=== PATIENT | male | born 1980 | race Caucasian/White ===

== ENCOUNTER 2016-10-22 18:40 | Emergency (ER) | payer OTHER ==
[2016-10-22 18:45] VITALS: BP 143/98
[2016-10-22 19:32] LABS: Hematocrit 45 % (42-52); Hemoglobin 15.6 g/dl (14.0-18.0); Mean Corpuscular HGB Conc 34 g/dl (31-36); Mean Corpuscular Hemoglobin 31 pg (27-31); Mean Corpuscular Volume 91 fL (80-94); Mean Platelet Volume 9 um3 (7.4-10.4); Red Blood Count 5.01 10^6/ul (4.0-5.4); Red Cell Distribution Width 14 % (10.5-15); White Blood Count 9.3 10^3/ul (3.5-10.8)
[2016-10-22 19:46] LABS: Urine Bilirubin Negative (Negative); Urine Glucose Negative (Negative); Urine Nitrite Negative (Negative)
[2016-10-22 19:48] LABS: ALT 26 U/L (7-52); AST 23 U/L (13-39); Albumin 4.4 g/dL (3.2-5.2); Alkaline Phosphatase 52 U/L (34-104); Anion Gap 7 mmol/L (2-11); BUN/Creatinine Ratio 18.6 (8-20); Blood Urea Nitrogen 16 mg/dL (6-24); CO2 Carbon Dioxide 27 mmol/L (22-32); Calcium 9.3 mg/dL (8.6-10.3); Chloride 104 mmol/L (101-111); EGFR African American 130.9 (>60); EGFR Non-African American 101.8 (>60); Globulin 2.6 g/dL (2-4); Glucose 95 mg/dL (70-100); Potassium 3.7 mmol/L (3.5-5.0); Sodium 138 mmol/L (133-145)
[2016-10-22 19:57] LABS: Benzodiazepine Urine Screen None Detected (None Detect)
[2016-10-22 20:13] LABS: Acetaminophen < 15 mcg/mL; Alcohol 37 mg/dL (<10); Salicylate < 2.50 mg/dL (<30)
[2016-10-22 20:22] LABS: TSH (Thyroid Stimulating Horm) 1.21 mcIU/mL (0.34-5.60)
--- NOTE | 2016-10-22 23:01 | ED ---
Maci Frazier Edward, scribed for Master Torres MD on 10/22/16 at 1909 . Psychiatric Complaint - HPI Summary HPI Summary: 35 y/o male presents to ED c/o depression and stress. Patient voluntarily came into the ED after his depression was recently aggravated by marital stress today. Specifically, the patient went to his first marriage counseling session today with his spouse. After going home, the patient started drinking and pacing around the house, which worried his , who then called the police. Patient brought himself to the ED shortly after. PMHx depression (takes Zoloft, but claims it is not working). - History Of Current Complaint Chief Complaint: EDMentalHealth Time Seen by Provider: 10/22/16 18:46 Hx Obtained From: Patient Onset/Duration: Gradual Onset Character: Depressed Aggravating Factor(s): Recent Stress - Marital stress. Went to first marriage counseling session today PMH/Surg Hx/FS Hx/Imm Hx Previously Healthy: Yes Endocrine/Hematology History: Denies: Hx Diabetes Cardiovascular History: Denies: Hx Myocardial Infarction Neurological History: Denies: Hx CVA Psychiatric History: Reports: Hx Depression - Surgical History Surgery Procedure, Year, and Place: None Infectious Disease History: Denies: Traveled Outside the [place] in Last 30 Days - Family History Known Family History: Positive: Diabetes - Mother - Social History Lives: With Family Alcohol Use: Occasionally Hx Tobacco Use: Yes Smoking Status (MU): Current Every Day Smoker Type: Pipe Review of Systems Constitutional: Negative Eyes: Negative ENT: Negative Cardiovascular: Negative Respiratory: Negative Gastrointestinal: Negative Genitourinary: Negative Musculoskeletal: Negative Skin: Negative Neurological: Negative Positive: Depressed All Other Systems Reviewed And Are Negative: Yes Physical Exam Triage Information Reviewed: Yes Vital Signs On Initial Exam: Initial Vitals Temp Pulse Resp BP Pulse Ox 98.8 F 111 20 143/98 98 10/22/16 18:41 10/22/16 18:41 10/22/16 18:41 10/22/16 18:41 10/22/16 18:41 Vital Signs Reviewed: Yes Appearance: Positive: Well-Appearing, No Pain Distress Skin: Positive: Warm, Skin Color Reflects Adequate Perfusion, Dry Head/Face: Positive: Normal Head/Face Inspection Eyes: Positive: Normal ENT: Positive: Normal ENT inspection Neck: Positive: Supple, Nontender Respiratory/Lung Sounds: Positive: Clear to Auscultation, Breath Sounds Present Cardiovascular: Positive: RRR Abdomen Description: Positive: Nontender, Soft Bowel Sounds: Positive: Present Musculoskeletal: Positive: Normal Neurological: Positive: Normal Psychiatric: Positive: Normal, Affect/Mood Appropriate Diagnostics - Vital Signs Vital Signs Temp Pulse Resp BP Pulse Ox 10/22/16 18:41 98.8 F 111 20 143/98 98 - Laboratory Lab Results: Lab Results 10/22/16 10/22/16 10/22/16 Range/Units 19:21 19:21 19:30 WBC 9.3 (3.5-10.8) 10^3/ul RBC 5.01 (4.0-5.4) 10^6/ul Hgb 15.6 (14.0-18.0) g/dl Hct 45 (42-52) % MCV 91 (80-94) fL MCH 31 (27-31) pg MCHC 34 (31-36) g/dl RDW 14 (10.5-15) % Plt Count 222 (150-450) 10^3/ul MPV 9 (7.4-10.4) um3 Neut % (Auto) 85.9 H (38-83) % Lymph % (Auto) 9.5 L (25-47) % Knott % (Auto) 4.0 (1-9) % Eos % (Auto) 0.2 (0-6) % Baso % (Auto) 0.4 (0-2) % Absolute Neuts (auto) 8.0 H (1.5-7.7) 10^3/ul Absolute Lymphs (auto) 0.9 L (1.0-4.8) 10^3/ul Absolute Monos (auto) 0.4 (0-0.8) 10^3/ul Absolute Eos (auto) 0 (0-0.6) 10^3/ul Absolute Basos (auto) 0 (0-0.2) 10^3/ul Absolute Nucleated RBC 0 10^3/ul Nucleated RBC % 0 Sodium 138 (133-145) mmol/L Potassium 3.7 (3.5-5.0) mmol/L Chloride 104 (101-111) mmol/L Carbon Dioxide 27 (22-32) mmol/L Anion Gap 7 (2-11) mmol/L BUN 16 (6-24) mg/dL Creatinine 0.86 (0.67-1.17) mg/dL Est GFR ( Amer) 130.9 (>60) Est GFR (Non-Af Amer) 101.8 (>60) BUN/Creatinine Ratio 18.6 (8-20) Glucose 95 (70-100) mg/dL Calcium 9.3 (8.6-10.3) mg/dL Total Bilirubin 0.60 (0.2-1.0) mg/dL AST 23 (13-39) U/L ALT 26 (7-52) U/L Alkaline Phosphatase 52 (34-104) U/L Total Protein 7.0 (6.4-8.9) g/dL Albumin 4.4 (3.2-5.2) g/dL Globulin 2.6 (2-4) g/dL Albumin/Globulin Ratio 1.7 (1-3) TSH 1.21 (0.34-5.60) mcIU/mL Urine Color Yellow Urine Appearance Cloudy Urine pH 7.0 (5-9) Ur Specific [place] 1.014 (1.010-1.030) Urine Protein Negative (Negative) Urine Ketones Negative (Negative) Urine Blood Negative (Negative) Urine Nitrate Negative (Negative) Urine Bilirubin Negative (Negative) Urine Urobilinogen Negative (Negative) Ur Leukocyte Esterase Negative (Negative) Urine Glucose Negative (Negative) Salicylates < 2.50 (<30) mg/dL Urine Opiates Screen (None Detect) Acetaminophen < 15 mcg/mL Ur Barbiturates Screen (None Detect) Ur Phencyclidine Scrn (None Detect) Ur Amphetamines Screen (None Detect) U Benzodiazepines Scrn (None Detect) Urine Cocaine Screen (None Detect) U Cannabinoids Screen (None Detect) Serum Alcohol 37 H (<10) mg/dL 10/22/16 Range/Units 19:30 WBC (3.5-10.8) 10^3/ul RBC (4.0-5.4) 10^6/ul Hgb (14.0-18.0) g/dl Hct (42-52) % MCV (80-94) fL MCH (27-31) pg MCHC (31-36) g/dl RDW (10.5-15) % Plt Count (150-450) 10^3/ul MPV (7.4-10.4) um3 Neut % (Auto) (38-83) % Lymph % (Auto) (25-47) % [place] % (Auto) (1-9) % Eos % (Auto) (0-6) % Baso % (Auto) (0-2) % Absolute Neuts (auto) (1.5-7.7) 10^3/ul Absolute Lymphs (auto) (1.0-4.8) 10^3/ul Absolute Monos (auto) (0-0.8) 10^3/ul Absolute Eos (auto) (0-0.6) 10^3/ul Absolute Basos (auto) (0-0.2) 10^3/ul Absolute Nucleated RBC 10^3/ul Nucleated RBC % Sodium (133-145) mmol/L Potassium (3.5-5.0) mmol/L Chloride (101-111) mmol/L Carbon Dioxide (22-32) mmol/L Anion Gap (2-11) mmol/L BUN (6-24) mg/dL Creatinine (0.67-1.17) mg/dL Est GFR ( Amer) (>60) Est GFR (Non-Af Amer) (>60) BUN/Creatinine Ratio (8-20) Glucose (70-100) mg/dL Calcium (8.6-10.3) mg/dL Total Bilirubin (0.2-1.0) mg/dL AST (13-39) U/L ALT (7-52) U/L Alkaline Phosphatase (34-104) U/L Total Protein (6.4-8.9) g/dL Albumin (3.2-5.2) g/dL Globulin (2-4) g/dL Albumin/Globulin Ratio (1-3) TSH (0.34-5.60) mcIU/mL Urine Color Urine Appearance Urine pH (5-9) Ur Specific [place] (1.010-1.030) Urine Protein (Negative) Urine Ketones (Negative) Urine Blood (Negative) Urine Nitrate (Negative) Urine Bilirubin (Negative) Urine Urobilinogen (Negative) Ur Leukocyte Esterase (Negative) Urine Glucose (Negative) Salicylates (<30) mg/dL Urine Opiates Screen None detected (None Detect) Acetaminophen mcg/mL Ur Barbiturates Screen None detected (None Detect) Ur Phencyclidine Scrn None detected (None Detect) Ur Amphetamines Screen Presumptive positive H (None Detect) U Benzodiazepines Scrn None detected (None Detect) Urine Cocaine Screen None detected (None Detect) U Cannabinoids Screen None detected (None Detect) Serum Alcohol (<10) mg/dL Result Diagrams: 10/22/16 19:21 10/22/16 19:21 Lab Statement: Any lab studies that have been ordered have been reviewed, and results considered in the medical decision making process. Course/Dx - Course Course Of Treatment: Mr. Bowen was medically cleared and underwent MHE. They felt that hs was safe to be D/C'd. Assessment/Plan: Patient was medically cleared by Dr. Torres for MHU Eval @ 20: 26. - Differential Dx/Clinical Impression Provider Diagnosis: Situational depression Discharge - Discharge Plan Condition: Stable Disposition: HOME Patient Education Materials: Depression (ED), Suicide Prevention for Adults (ED ) Referrals: [facility] [Other] (Please go to [facility] at your earliest convenience and request an intake appointment. They have walk in hours every day Wednesday - Wednesday.) Non Staff,Doctor [Primary Care Provider] - The documentation as recorded by the Maci tejeda Edward accurately reflects the service I personally performed and the decisions made by , Master Torres MD.
== END 2016-10-22 22:31 | disposition home or self-care (01) ==
LOC: ED 18:40
DX: F32.9 Major depressive disorder, single episode, unspecified (principal); F17.210 Nicotine dependence, cigarettes, uncomplicated
CPT/HCPCS: 36415; 80053; 80307; 80320; 80329; 81003; 84443; 85025; 99284; G0480

== ENCOUNTER 2017-12-07 12:32 | Emergency (ER) | payer OTHER ==
[2017-12-07] MEDS ORDERED: Ketorolac INJ* 60 MG/2 ML VIAL IM ONE (13:18)
[2017-12-07] MEDS ORDERED: oxyCODONE/Acetamin 5/325 MG* TAB PO ONE (13:18)
--- NOTE | 2017-12-07 14:05 | RAD ---
INDICATION: Injury. COMPARISON: There are no prior studies available for comparison. TECHNIQUE: 5 views of the lumbar spine were obtained including lateral, oblique, AP and a coned-down lateral view of the lumbar sacral junction. FINDINGS: There is a [id number] lumbar scoliosis convex toward the right side. No fracture is seen. There is mild degenerative disc disease at the L4-L5 and L5-S1 levels. There is a large amount retained stool. IMPRESSION: 1. MILD DEGENERATIVE DISC DISEASE. 2. LARGE AMOUNT RETAINED STOOL.
--- NOTE | 2017-12-07 16:01 | ED ---
Skin Complaint - History of Current Complaint Chief Complaint: EDBackInjuryPain Time Seen by Provider: 12/07/17 12:51 Stated Complaint: BACK PAIN Pain Intensity: 5 - Allergy/Home Medications Allergies/Adverse Reactions: Allergies Allergy/AdvReac Type Severity Reaction Status Date / Time shellfish derived Allergy Anaphylatic Verified 12/07/17 12:59 Shock Home Medications: Home Medications Dextroamphetamine/Amphetamine [Adderall Xr 30 mg Capsule] 30 mg PO DAILY [History Confirmed 12/07/17] Duloxetine HCl 60 mg PO DAILY 12/07/17 [History Confirmed 12/07/17] Eszopiclone [Lunesta] 3 mg PO DAILY 12/07/17 [History Confirmed 12/07/17] lamoTRIgine [Lamotrigine] 150 mg PO DAILY 12/07/17 [History Confirmed 12/07/17] PMH/Surg Hx/FS Hx/Imm Hx Endocrine/Hematology History: Denies: Hx Diabetes Cardiovascular History: Denies: Hx Hypertension, Hx Myocardial Infarction, Hx Pacemaker/ICD History: Denies: Hx Renal Disease Sensory History: Denies: Hx Hearing Aid Neurological History: Denies: Hx CVA Psychiatric History: Reports: Hx Depression Denies: Hx Eating Disorder, Hx Panic Disorder - Surgical History Surgery Procedure, Year, and Place: None Infectious Disease History: No Infectious Disease History: Denies: Traveled Outside the [place] in Last 30 Days - Family History Known Family History: Positive: Diabetes - Mother - Social History Alcohol Use: Occasionally Substance Use Type: Reports: None Hx Tobacco Use: Yes Smoking Status (MU): Current Some Day Smoker Type: Pipe Physical Exam Vital Signs On Initial Exam: Initial Vitals Temp Pulse Resp BP Pulse Ox 98.5 F 99 18 123/96 99 12/07/17 12:33 12/07/17 12:33 12/07/17 12:33 12/07/17 12:33 12/07/17 12:33 Diagnostics - Vital Signs Vital Signs Temp Pulse Resp BP Pulse Ox 12/07/17 13:26 20 12/07/17 12:33 98.5 F 99 18 123/96 99 - Laboratory Lab Statement: Any lab studies that have been ordered have been reviewed, and results considered in the medical decision making process. Discharge - Discharge Plan Condition: Good Disposition: HOME Prescriptions: Cyclobenzaprine TAB* [Flexeril 10 MG TAB*] 10 mg PO TID PRN #12 tab PRN Reason: Pain oxyCODONE/Acetamin 5/325 MG* [Percocet 5/325 TAB*] 1 tab PO Q6H PRN #12 tab MDD 4tablet PRN Reason: Pain predniSONE TAB* [Deltasone 20 MG TAB*] 40 mg PO DAILY 5 Days #5 tab Patient Education Materials: Lumbar Disc Herniation (ED), Muscle Spasm (ED) Referrals: Dinah Hwang MD [Primary Care Provider] - Domingo Read MD [Medical Doctor] - Additional Instructions: Call your PCP and the neurosurgery office to schedule an appointment Take medication as directed Apply warm compresses Avoid heavy lifting Return to ER for increased pain, leg numbness, loss of bowel or bladder control - Billing Disposition and Condition Condition: GOOD Disposition: Home
[2017-12-07 16:04] VITALS: BP 146/92
--- NOTE | 2017-12-07 18:21 | ED ---
Back Pain - HPI Summary HPI Summary: Patient is a 37-year-old male who presents emergency department for low back pain 2 days. He states he's been having on and off issues with his back over the last several months. Patient states that he does not recall any specific recent injuries but his does note that he unloaded a [employer] yesterday by himself. Pain is located to low back and occasionally radiates into legs. Denies associated symptoms of numbness, tingling or weakness to legs. Denies bowel or bladder incontinence or retention. Symptoms are mild in severity. Movement makes symptoms worse. Lying flat makes symptoms better. Patient states he routinely sees a chiropractor. Patient also notes that he had a massage yesterday that seemed to worsen back pain. - History of Current Complaint Chief Complaint: EDBackInjuryPain Stated Complaint: BACK PAIN Time Seen by Provider: 12/07/17 12:51 Hx Obtained From: Patient Pain Intensity: 3 Pain Scale Used: 0-10 Numeric - Allergies/Home Medications Allergies/Adverse Reactions: Allergies Allergy/AdvReac Type Severity Reaction Status Date / Time shellfish derived Allergy Anaphylatic Verified 12/07/17 12:59 Shock Home Medications: Home Medications Dextroamphetamine/Amphetamine [Adderall Xr 30 mg Capsule] 30 mg PO DAILY [History Confirmed 12/07/17] Duloxetine HCl 60 mg PO DAILY 12/07/17 [History Confirmed 12/07/17] Eszopiclone [Lunesta] 3 mg PO DAILY 12/07/17 [History Confirmed 12/07/17] lamoTRIgine [Lamotrigine] 150 mg PO DAILY 12/07/17 [History Confirmed 12/07/17] PMH/Surg Hx/FS Hx/Imm Hx Previously Healthy: Yes Endocrine/Hematology History: Denies: Hx Diabetes Cardiovascular History: Denies: Hx Hypertension, Hx Myocardial Infarction, Hx Pacemaker/ICD History: Denies: Hx Renal Disease Sensory History: Denies: Hx Hearing Aid Neurological History: Denies: Hx CVA Psychiatric History: Reports: Hx Depression Denies: Hx Eating Disorder, Hx Panic Disorder - Surgical History Surgery Procedure, Year, and Place: None Infectious Disease History: No Infectious Disease History: Denies: Traveled Outside the [place] in Last 30 Days - Family History Known Family History: Positive: Diabetes - Mother - Social History Occupation: Employed Full-time Lives: With Family Alcohol Use: Occasionally Substance Use Type: Reports: None Hx Tobacco Use: Yes Smoking Status (MU): Current Some Day Smoker Type: Pipe Review of Systems Genitourinary: Negative Negative: incontinence Positive: Other - back pain Neurological: Negative Negative: Weakness, Paresthesia, Numbness All Other Systems Reviewed And Are Negative: Yes Physical Exam Triage Information Reviewed: Yes Vital Signs On Initial Exam: Initial Vitals Temp Pulse Resp BP Pulse Ox 98.5 F 99 18 123/96 99 12/07/17 12:33 12/07/17 12:33 12/07/17 12:33 12/07/17 12:33 12/07/17 12:33 Vital Signs Reviewed: Yes Appearance: Positive: Pain Distress - Patient lying flat on bed, appears uncomfortable but nontoxic. present. Skin: Positive: Warm, Dry Head/Face: Positive: Normal Head/Face Inspection Eyes: Positive: Normal, EOMI Neck: Positive: Supple Musculoskeletal: Positive: Other - 5 out of 5 strength in bilateral lower extremities. No sensory deficits. Positive straight leg test bilaterally. Unable to examine back at this time palpation not wanting to sit up from lying secondary to pain. Neurological: Positive: Normal, CN Intact II-III Psychiatric: Positive: Affect/Mood Appropriate Diagnostics - Vital Signs Vital Signs Temp Pulse Resp BP Pulse Ox 12/07/17 16:03 99.0 F 78 14 146/92 99 12/07/17 13:26 20 12/07/17 12:33 98.5 F 99 18 123/96 99 - Laboratory Lab Statement: Any lab studies that have been ordered have been reviewed, and results considered in the medical decision making process. Back Pain Course/Dx - Course Course Of Treatment: Patient presenting to the ER for low back pain. He has no neurological deficits on exam or evidence of cauda equina syndrome. Patient requesting x-ray which was ordered. Suspect lumbar disc. herniation based on exam. He was given a dose of Percocet Toradol. X-ray shows degenerative disc disease as well as a large amount of stool, reading per radiology. On reexamination patient states pain is slightly improving. He is able to ambulate to the with restroom with pain. We'll prescribe a short course of pain medication, muscle relaxer and steroids. SENIOR SALES OPERATIONS ANALYST was queried and no red flags noted. Advised patient close follow-up with PCP or neurosurgery given his ongoing symptoms over the last several months. Shortly advised to rest and avoid heavy lifting and shortness activity. To apply warm compresses. To return to the ER for increased pain, leg numbness, tingling or weakness, bowel or bladder incontinence or retention. Patient understands and agrees with plan. - Diagnoses Differential Diagnosis/HQI/PQRI: Positive: Arthritis, Cauda Equina Syndrome, Compressive Cord Syndrome, Fracture, Herniated Disc, Strain, Sprain Provider Diagnoses: Lumbar disc herniation, Back pain Discharge - Sign-Out/Discharge Documenting (check all that apply): Patient Departure - Discharge Plan Condition: Good Disposition: HOME Prescriptions: Cyclobenzaprine TAB* [Flexeril 10 MG TAB*] 10 mg PO TID PRN #12 tab PRN Reason: Pain oxyCODONE/Acetamin 5/325 MG* [Percocet 5/325 TAB*] 1 tab PO Q6H PRN #12 tab MDD 4tablet PRN Reason: Pain predniSONE TAB* [Deltasone 20 MG TAB*] 40 mg PO DAILY 5 Days #5 tab Patient Education Materials: Lumbar Disc Herniation (ED), Muscle Spasm (ED) Referrals: Dinah Hwang MD [Primary Care Provider] - Domingo Read MD [Medical Doctor] - Additional Instructions: Call your PCP and the neurosurgery office to schedule an appointment Take medication as directed Apply warm compresses Avoid heavy lifting Return to ER for increased pain, leg numbness, loss of bowel or bladder control - Billing Disposition and Condition Condition: GOOD Disposition: Home
== END 2017-12-07 16:03 | disposition home or self-care (01) ==
LOC: ED 12:32
DX: M51.26 Other intervertebral disc displacement, lumbar region (principal); M54.9 Dorsalgia, unspecified
CPT/HCPCS: 72110; 96372; 99282; A9270-GY; J1885